=== PATIENT | male | born 1955 | race American Indian/Alaskan Native ===

== ENCOUNTER 2016-03-23 01:07 | Emergency (ER) | payer SELFPAY ==
[2016-03-23 01:58] VITALS: BP 140/88
[2016-03-23 02:32] LABS: Basophils % (Auto) 0.8 % (0.0-1.8); Eosinophils % (Auto) 5.2 % (0.0-4.3); Hematocrit 38.6 % (35.5-45.6); Hemoglobin 12.4 gm/dl (11.8-15.2); Mean Corpuscular HGB Conc 32 % (32-34); Mean Corpuscular Hemoglobin 27 pg (28-32); Mean Corpuscular Volume 85 fl (84-94); Platelet Count 230 K/mm3 (140-440); Red Blood Count 4.54 M/mm3 (3.65-5.03); Red Cell Distribution Width 15.4 % (13.2-15.2); White Blood Count 8.6 K/mm3 (4.5-11.0)
[2016-03-23 02:52] LABS: Anion Gap 18 mmol/L; BUN/Creatinine Ratio 25.55; Blood Urea Nitrogen 23 mg/dL (9-20); Calcium 9.3 mg/dL (8.4-10.2); Carbon Dioxide 26 mmol/L (22-30); Chloride 99.5 mmol/L (98-107); Glucose 116 mg/dL (75-100); Potassium 4.4 mmol/L (3.6-5.0); Sodium 139 mmol/L (137-145)
--- NOTE | 2016-03-23 09:48 | XRay Report ---
RIGHT FOOT 2 VIEWS: 03/23/16 02:00:00 CLINICAL: Trauma and pain. FINDINGS: No fracture or dislocation. Normal soft tissues. No soft tissue air or foreign body. IMPRESSION: Normal.
--- NOTE | 2016-03-23 15:05 | ED Elopement Review ---
ED Pt Elopement review - Results review Lab results: Laboratory Tests 03/23/16 03/23/16 02:14 02:14 WBC 8.6 RBC 4.54 Hgb 12.4 Hct 38.6 MCV 85 MCH 27 L MCHC 32 RDW 15.4 H Plt Count 230 Lymph % (Auto) 34.1 [place] % (Auto) 11.4 H Eos % (Auto) 5.2 H Baso % (Auto) 0.8 Lymph # 3.0 [place] # 1.0 H Eos # 0.4 Baso # 0.1 Seg Neutrophils % 48.5 Seg Neutrophils # 4.2 Sodium 139 Potassium 4.4 Chloride 99.5 Carbon Dioxide 26 Anion Gap 18 BUN 23 H Creatinine 0.9 Estimated GFR > 60 BUN/Creatinine Ratio 25.55 Glucose 116 H Calcium 9.3 Troponin T < 0.010 - Call Back decision Pt Call Back Decision: No action required
== END 2016-03-23 02:05 | disposition left against medical advice (07) ==
LOC: ED 01:07
DX: S99.921A Unspecified injury of right foot, initial encounter (principal); R07.9 Chest pain, unspecified; Z53.21 Procedure and treatment not carried out due to patient leaving prior to being seen by health care provider; W20.8XXA Other cause of strike by thrown, projected or falling object, initial encounter; Y93.9 Activity, unspecified; Y92.9 Unspecified place or not applicable; Y99.9 Unspecified external cause status
CPT/HCPCS: 36415; 80048; 84484; 85025; 93005; 93010

== ENCOUNTER 2016-07-08 07:44 | Day surgery (SDC) | payer OTHER ==
[2016-07-08] MEDS ORDERED: HEPARIN/NS 5000 UNIT/500ML(CATH LAB) 1,000 ML IR ONE (08:26)
[2016-07-08] MEDS ORDERED: XYLOCAINE 2% INFILTRATI ONE (08:27)
[2016-07-08] MEDS ORDERED: SUBLIMAZE ONE (08:27)
[2016-07-08] MEDS ORDERED: HEPARIN 10,000 UNITS/10 ML ONE (08:27)
[2016-07-08] MEDS ORDERED: VERSED ONE (08:27)
[2016-07-08 08:42] LABS: Basophils % (Auto) 0.8 % (0.0-1.8); Eosinophils % (Auto) 3.8 % (0.0-4.3); Hemoglobin 12.7 gm/dl (11.8-15.2); Mean Corpuscular HGB Conc 33 % (32-34); Mean Corpuscular Hemoglobin 28 pg (28-32); Mean Corpuscular Volume 86 fl (84-94); Platelet Count 254 K/mm3 (140-440); Red Blood Count 4.56 M/mm3 (3.65-5.03); Red Cell Distribution Width 15.7 % (13.2-15.2); White Blood Count 9.4 K/mm3 (4.5-11.0)
[2016-07-08 08:50] LABS: INR 0.93 (0.87-1.13)
[2016-07-08] MEDS ORDERED: NACL 0.9% 500 ML 500 ML IV SCH (09:00)
[2016-07-08] MEDS ORDERED: NITROGLYCERIN SYRINGE 3 ML ONE (09:45)
[2016-07-08] MEDS ORDERED: CALAN ONE (09:45)
[2016-07-08 10:18] LABS: Anion Gap 16 mmol/L; BUN/Creatinine Ratio 24.28; Blood Urea Nitrogen 17 mg/dL (9-20); Calcium 8.9 mg/dL (8.4-10.2); Carbon Dioxide 24 mmol/L (22-30); Chloride 105.9 mmol/L (98-107); Glucose 121 mg/dL (75-100); Potassium 4.1 mmol/L (3.6-5.0); Sodium 142 mmol/L (137-145)
--- NOTE | 2016-07-08 10:27 | Short Stay Summary ---
Short Stay Documentation Date of service: 07/08/16 - History H&P: obtained from office - Allergies and Medications Current Medications: Allergies No Known Allergies Allergy (Unverified 03/23/16 01:58) Home Medications Medication Instructions Recorded Confirmed Last Taken Type Aspirin BABY CHEW TAB 1 tab PO DAILY 03/23/16 07/08/16 07/05/16 History Lisinopril [Zestril TAB] 10 mg PO QDAY 03/23/16 07/08/16 07/05/16 History Plavix 75 mg PO DAILY 03/23/16 07/08/16 07/04/16 History Lipitor 40 mg PO QHS 07/08/16 07/08/16 07/05/16 History Metoprolol [Lopressor TAB] 25 mg PO DAILY 07/08/16 07/08/16 07/05/16 History Active Medications Sodium Chloride (Nacl 0.9% 500 Ml) 500 mls @ 50 mls/hr IV DIRECT TOM Last Admin: 07/08/16 08:37 Dose: 50 mls/hr - Brief post op/procedure progress note Date of procedure: 07/08/16 Pre-op diagnosis: pad Post-op diagnosis: same Procedure: see report Anesthesia: local Estimated blood loss: none Pathology: none - Disposition Condition at discharge: Good Disposition: DISCHARGED TO HOME OR SELFCARE - Discharge Diagnoses (1) PAD (peripheral artery disease) Status: Chronic (2) Claudication of right lower extremity Status: Acute (3) Hypertension Status: Chronic Qualifiers: Hypertension type: essential hypertension Qualified Code(s): I10 - Essential (primary) hypertension (4) Hyperlipemia, mixed Status: Chronic (5) CAD (coronary artery disease) of artery bypass graft Status: Chronic Qualifiers: [place] vs. transplanted heart: [place] heart Associated angina: without angina Qualified Code(s): I25.810 - Atherosclerosis of coronary artery bypass graft(s) without angina pectoris Short Stay Discharge Plan Activity: advance as tolerated Diet: low fat, low cholesterol Wound: keep clean and dry Follow up with: MIKE SHAFFER MD [Staff Physician] - 7 Days
[2016-07-08 12:07] VITALS: BP 135/82
--- NOTE | 2016-07-08 14:20 | Cardiac Catherization Report ---
PROCEDURE: Peripheral angiogram being done by Dr. Dickerson on 07/08/2016. 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 He is here for peripheral angiogram. Peripheral angiogram performed via the right radial artery, sterile technique, local anesthesia, 6-[place] radial sheath inserted and a 5-[place] pigtail catheter placed in the distal abdominal aorta and final runoff was done shows: 1. Abdominal aorta is patent with mild luminal irregularities. 2. Right common iliac distal has a 95% lesion. Right internal iliac patent. Right external iliac diffuse disease 30% and right common femoral artery has a focal 95% lesion. Right profunda is large. Right SFA is 100% at the ostium. Extensive collateralization feeds into the popliteal that is patent with 2-vessel runoff posterior tibial and peroneal. 3. Left common iliac diffuse disease around 40%. Left external iliac patent. Left internal iliac patent. Left common femoral artery has a 50% lesion. Left SFA proximal is 100%. Left profunda is large, gave extensive collateralization and feeds into the left popliteal with 3-vessel runoff. 4. A 5-[place] pigtail taken over a guidewire, 6-[place] radial sheath was discontinued. Radial dressing applied. No hematoma. No bleeding. SUMMARY: 1. The patient had extensive peripheral vascular disease with bilateral SFAs 100% with 2-vessel runoff in the right and 3-vessel runoff on the left. 2. The patient has significant disease in the right common iliac artery and right common femoral artery. 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 Discussed in detail with the patient and the patient's family. JOB# [id number] [facility]
== END 2016-07-08 12:30 | disposition home or self-care (01) ==
LOC: OPU 07:44
PROVIDERS: ATTEND Internal Medicine
DX: I70.213 Atherosclerosis of native arteries of extremities with intermittent claudication, bilateral legs (principal); I25.10 Atherosclerotic heart disease of native coronary artery without angina pectoris; I10 Essential (primary) hypertension; E78.2 Mixed hyperlipidemia; E11.9 Type 2 diabetes mellitus without complications; I25.2 Old myocardial infarction; F17.290 Nicotine dependence, other tobacco product, uncomplicated; Z95.1 Presence of aortocoronary bypass graft; Z95.820 Peripheral vascular angioplasty status with implants and grafts; Z83.3 Family history of diabetes mellitus; Z82.49 Family history of ischemic heart disease and other diseases of the circulatory system
CPT/HCPCS: 36200; 36415; 75625; 75716; 80048; 85025; 85610; C1894; J1644; J2250; J3010; J7040; Q9967